=== PATIENT | female | born 1965 ===

== ENCOUNTER 2022-12-25 08:00 | Inpatient (IN) | payer OTHER ==
[~2022-12-25] VITALS: Ht 157.5 cm; Wt 59.4 kg
[2022-12-25] MEDS ORDERED: ATORVASTATIN CA10 MG PO (09:38)
[2022-12-25] MEDS ORDERED: ZETIA10 MG PO (09:39)
[2022-12-28] MEDS ORDERED: ATORVASTATIN CA80 MG (09:40)
[2022-12-28] MEDS ORDERED: FUSION PLUS CA1 EACH (09:40)
[2022-12-28] MEDS ORDERED: MEDROXYPRO150 MG/1 M (09:40)
[2022-12-28] MEDS ORDERED: NORVASC2.5 MG (09:40)
[2022-12-28] MEDS ORDERED: MEGESTROL ACETA20 MG (09:40)
[2022-12-28] MEDS ORDERED: ST. JOSEPH ASPI81 M2 (09:40)
[2022-12-29] MEDS ORDERED: IBUPROFEN800 MG PO (06:50)
== END 2022-12-29 09:29 | disposition home or self-care (01) | DRG 743 ==
LOC: O/R 12-28 05:08 → OB/GYN 12-28 08:00
PROVIDERS: ADMIT Obstetrics & Gynecology Gynecology; ATTEND Obstetrics & Gynecology Gynecology
PROC: 0UT9FZZ Resection of Uterus, Via Natural or Artificial Opening With Percutaneous Endoscopic Assistance (ICD-10-PCS; principal; 2022-12-28 19:00)
DX: D25.1 Intramural leiomyoma of uterus (principal); N80.03 Adenomyosis of the uterus; N84.0 Polyp of corpus uteri; Z20.822 Contact with and (suspected) exposure to COVID-19